=== PATIENT | male | born 1935 | race Caucasian/White ===

== ENCOUNTER 2018-12-19 14:09 | Inpatient (IN) ==
--- NOTE | 2018-12-19 14:44 | EKG Report ---
Test Performed on : 12/19/2018 2:20:25 PM Test Reason : pre-op Blood Pressure : / mmHG Vent. Rate : 091 BPM Atrial Rate : 091 BPM P-R Int : 106 ms QRS Dur : 092 ms QT Int : 396 ms P-R-T Axes : 073 -10 094 degrees QTc Int : 487 ms Sinus rhythm. with short RI with premature supraventricular complexes. Anteroseptal infarct (cited on or before 28-OCT-2017) ST & T wave abnormality, consider inferolateral ischemia Abnormal ECG When compared with ECG of 28-OCT-2017 08:49, Sinus rhythm. has replaced Atrial fibrillation. ST now depressed in Anterolateral leads T wave inversion now evident in Inferior leads T wave inversion now evident in Anterolateral leads Unconfirmed Result
--- NOTE | 2018-12-19 14:55 | Diag Imaging Result Doc PS360 ---
EXAM: CT HEAD W/O CONTRAST 12/19/2018 HISTORY: fell TECHNIQUE: This exam was performed using automated exposure control, adjustment of mA or kV according to patient size, and/or use of iterative reconstruction technique. COMMENT: There is moderate generalized cerebral atrophy. There is no evidence of mass effect, bleed, or abnormal extra-axial fluid collection. There are some calcifications in the basal ganglia. The calvarium appears to be intact. The right maxillary sinus is opacified with some calcification and thickening of the wall consistent with chronic sinusitis, possibly due to fungal disease. IMPRESSION: No evidence of acute intracranial disease. Chronic right maxillary sinusitis. Electronically signed by Rashawn Beltran 12/19/2018 2:53 PM
--- NOTE | 2018-12-19 15:09 | Diag Imaging Result Doc PS360 ---
EXAM: XRAY PELVIS W/HIP 2-3VW LT 12/19/2018 HISTORY: pre-op TECHNIQUE: AP pelvis and left hip three views COMMENT: There is a femoral neck fracture on the left. This was not present on the previous study of 10/28/2017. There is a bipolar hip prosthesis which has been placed since the previous study. Considerable heterotopic bone formation is present around the proximal right femur. There is generalized osteopenia. There are surgical clips in the pelvis inferiorly on both sides. IMPRESSION: Left femoral neck fracture. Electronically signed by Rashawn Beltran 12/19/2018 3:07 PM
--- NOTE | 2018-12-19 15:11 | Diag Imaging Result Doc PS360 ---
EXAM: CHEST-PORTABLE 12/19/2018 HISTORY: pre-op TECHNIQUE: AP upright portable at 1458 COMMENT: There is irregular opacity in the right upper lobe inferiorly which was also present on 10/28/2017. The heart size and pulmonary vascularity are within normal limits. Overall the appearance of the chest is stable in comparison to the previous study. IMPRESSION: Stable chest. Electronically signed by Rashawn Beltran 12/19/2018 3:09 PM
--- NOTE | 2018-12-19 15:11 | Diag Imaging Result Doc PS360 ---
EXAM: LUMBAR SPINE 12/19/2018 HISTORY: fell TECHNIQUE: Lumbosacral spine with obliques six views COMMENT: There is generalized osteopenia/osteoporosis. There has been posterior fusion at the L2-3 and L3-4 levels. There are no previous studies. There is no definite evidence of acute fracture or subluxation. There is atherosclerotic calcification in the aorta. There is a fairly large amount of stool in the ascending and transverse colon. IMPRESSION: Osteoporosis. Postsurgical changes. Electronically signed by Rashawn Beltran 12/19/2018 3:08 PM
--- NOTE | 2018-12-19 15:13 | Diag Imaging Result Doc PS360 ---
EXAM: KNEE 1-2 VIEWS-LEFT 12/19/2018 HISTORY: fell TECHNIQUE: AP and lateral two views COMMENT: There is extensive atherosclerotic calcification in the superficial femoral popliteal and tibioperoneal vessels. There is no evidence of fracture or dislocation. There is patchy osteoporosis. IMPRESSION: No evidence of acute bony disease. Electronically signed by Rashawn Beltran 12/19/2018 3:10 PM
[2018-12-19 15:38] LABS: URINE SOURCE CLEAN CATCH
[2018-12-19 15:44] LABS: BASO# 0.01 X1000 (0.0-0.2); BASO% 0.1 % (0.0-0.8); EOS# 0.02 X1000 (0.0-0.7); EOS% 0.1 % (0.0-10.0); HEMATOCRIT 34.8 % (42.0-52.0); HEMOGLOBIN 11.6 g/dL (14.0-18.0); IMM GRAN# 0.06 X1000 (0.0-0.04); IMM GRAN% 0.4 % (0.0-0.5); LYMPH# 0.81 X1000 (1.2-3.4); LYMPH% 5.6 % (20.5-51.1); MCH 30.9 PG (27-31); MCHC 33.3 g/dL (33-37); MCV 92.8 FL (81-99); MONO# 0.96 X1000 (0.11-0.59); MONO% 6.7 % (1.7-9.3); NEUT# 12.56 X1000 (1.4-6.5); NEUT% 87.1 % (42.2-75.2); PLT 158 X1000 (130-400); RBC 3.75 XMIL (4.7-6.1); RDW 12.7 % (11.5-14.5); WBC 14.42 X1000 (4.8-10.8)
[2018-12-19 15:48] LABS: BILIRUBIN URINE NEGATIVE (NEGATIVE); BLOOD URINE NEGATIVE (NEGATIVE); COLOR YELLOW; GLUCOSE URINE NEGATIVE (NEGATIVE); KETONE URINE TRACE mg/dL (NEGATIVE); LEUKOCYTES URINE NEGATIVE (NEGATIVE); NITRITE URINE NEGATIVE (NEGATIVE); PH URINE 5.5; PROTEIN URINE 30 mg/dL (NEGATIVE); SP GRAVITY URINE 1.019; TURBIDITY URINE CLEAR (CLEAR); UR EPITHELIAL CELLS <10 /HPF (<10); URINE BACTERIA NEGATIVE /HPF; URINE RBC <10 /HPF (<10); URINE WBC <10 /HPF (<10); UROBILINOGEN URINE NORMAL (NORMAL)
[2018-12-19] MEDS ORDERED: ZOFRAN IV PRN (15:50)
[2018-12-19] MEDS ORDERED: TYLENOL PO PRN (15:50)
[2018-12-19 15:53] LABS: INR 1.07; PROTIME 14.7 Seconds (11.0-16.0)
--- NOTE | 2018-12-19 15:53 | PROVIDER DOCUMENTATION ---
This chart was entered by Amy Holder Scribe, acting as scribe for Pete Rojo MD. HPI-Musculoskeletal Pain/Inj - GENERAL Stated Complaint: FALL Time Seen by Provider: 12/19/18 14:17 Source: patient, EMS - HX OF PRESENT ILLNESS-MUSKULOSKELTAL Nature of Presenting Problem: Patient is a 83 year old male who presents to the ED via EMS for fall. Patient states pain to left thigh. EMS states patient stated he has had left thigh pain for 2 days ago after having a colonoscopy. Patient states when he fell he landed on back and buttock. Patient denies head injury or LOC. EMS states history of Parkinson's. Quality of Pain: reports: aching Severity in ED: mild Onset/Duration: this afternoon (1145) Timing: still present Modifying Factors: improves with: nothing Any recent injury?: Yes (fall) Locality of Occurance: Home Similar Symptoms Previously?: No Recently seen or treated by another doctor?: No - FALL INJURY Location of Pain/Injury: reports: back, other (buttocks) Pain Radiation: reports: no radiation Reason for Fall: reports: unknown Symptoms prior to fall:: reports: none Loss of Consciousness: no loss of consciousness - LOWER EXTREMITY PAIN/INJURY Lower Extremities Pain: thigh: left Context / Method of Injury: reports: unknown Associated Symptoms: reports: denies symptoms Review of Systems - Adult - REVIEW OF SYSTEMS - ADULT Constitutional: reports: no symptoms reported Eyes: reports: no symptoms reported Ears, Nose, Mouth & Throat: reports: no symptoms reported Cardiovascular: reports: no symptoms reported Respiratory: reports: no symptoms reported Gastrointestinal: reports: no symptoms reported Genitourinary: reports: no symptoms reported Musculoskeletal: reports: back pain, other (buttocks and left thigh pain). denies: joint swelling, muscle aches, neck pain Integumentary: reports: no symptoms reported Neurological: reports: no symptoms reported Psychiatric: reports: no symptoms reported Endocrine: reports: no symptoms reported Hematologic/Lymphatic: reports: no symptoms reported Allergic/Immunologic: reports: no symptoms reported All Other Systems: Reviewed and Negative Past History - Adult - PAST MEDICAL HISTORY-ADULT Review of Records: reports: Nursing Assessment Review, Medications Reviewed, Social history reviewed & non-contributory. Major Childhood Illnesses: reports: denies history Cardiovascular: reports: CAD, HTN, hyperlipidemia Respiratory: reports: denies history Gastrointestinal: reports: GERD Obstetrical/Gynecological: reports: denies history Genitourinary: reports: denies history Musculoskeletal: reports: arthritis (gout) Neurological: reports: Parkinson's Endocrine/Immune: reports: denies history Other Conditions: reports: denies history - PRIOR SURGERIES/PROCEDURES Surgical/Procedure History: reports: cardiac stent (x2), back/neck - IMMUNIZATION STATUS Childhood Immunizations: See Nurse Assessment Flu Vaccine: See Nurse Assessment - FAMILY HISTORY Family History: reviewed, not pertinent - SOCIAL HISTORY Smoking: denies Substance Use: denies Physical Exam-Injury Related - Physical Exam-Injury Related Initial Vital Signs Reviewed: Yes General Appearance: alert, no apparent distress, thin Eyes: PERRL/EOMI Head, Ears, Nose, Mouth & Throat: moist mucous membranes Respiratory: chest non-tender, lungs clear, normal breath sounds Cardiovascular: normal peripheral pulses, regular rate, rhythm Back Exam: normal inspection, no vertebral tenderness Extremity: non-tender, other (limited ROM to left leg due to pain to mid distal thigh.) Integumentary: normal color, warm/dry Neurologic: grossly normal Psych/Mental Status: normal mood/affect, oriented x 3 Progress - PLAN OF CARE/RESULTS Progress/Plan/Lab Results: Vital Signs - 8 hr 12/19/18 14:20 Temperature 98.5 F Pulse Rate 92 H Respiratory Rate 22 Blood Pressure 167/82 O2 Sat by Pulse Oximetry 95 Laboratory Results - last 24 hr 12/19/18 12/19/18 15:08 15:20 WBC 14.42 H RBC 3.75 L Hgb 11.6 L Hct 34.8 L MCV 92.8 MCH 30.9 MCHC 33.3 RDW Std Deviation 12.7 Plt Count 158 MPV 11.0 H Immature Gran % (Auto) 0.4 Neut % (Auto) 87.1 H Lymph % (Auto) 5.6 L Nobles % (Auto) 6.7 Eos % (Auto) 0.1 Baso % (Auto) 0.1 Immature Gran # (Auto) 0.06 H Neut # (Auto) 12.56 H Lymph # (Auto) 0.81 L Nobles # (Auto) 0.96 H Eos # (Auto) 0.02 Baso # (Auto) 0.01 Urine Source CLEAN CATCH Urine Color YELLOW Urine Turbidity CLEAR Urine pH 5.5 Ur Specific [place] 1.019 Urine Protein 30 A Ur Glucose (Stick) NEGATIVE Ur Ketones (Stick) TRACE A Urine Blood NEGATIVE Urine Nitrite NEGATIVE Urine Bilirubin NEGATIVE Urobilinogen Dipstick NORMAL Urine Leukocytes NEGATIVE Urine WBC (Auto) <10 Urine RBC (Auto) <10 U Epithel Cells (Auto) <10 Urine Bacteria (Auto) NEGATIVE Orders Category Date Time Status Admit - [facility] Routine AdmDCTranf 12/19/18 15:50 Active Activity - Strict Bedrest ORDERED Care 12/19/18 15:50 Active Apply Mechanical Device [QM] ORDERED Care 12/19/18 15:50 Active Intake and Output-Strict ORDERED Care 12/19/18 15:50 Active Nursing- MD Consult Request ROUTINE Care 12/19/18 15:50 Active Nursing- Obtain EKG once Care 12/19/18 14:17 Completed Vital Signs Order Q 4-HR ASSESS Care 12/19/18 15:50 Active Z-Document. for Tele Applied ORDERED Care 12/19/18 15:50 Active Case Management Consult Routine Cons 12/19/18 15:50 Active Physician/Provider Consults Routine Cons 12/19/18 15:50 Ordered NPO Diet 12/19/18 15:50 Active CHEST-PORTABLE [RAD] Stat Exams 12/19/18 14:[address] HEAD W/O CONTRAST [CT] Stat Exams 12/19/18 14:17 Completed KNEE 1-2 VIEWS-LEFT [RAD] Urgent Exams 12/19/18 14:17 Completed LUMBAR SPINE [RAD] Stat Exams 12/19/18 14:17 Completed XRAY PELVIS W/HIP 2-3VW LT [RAD] Stat Exams 12/19/18 14:17 Completed CBC WITH DIFF [HEME] DAILY Lab 12/20/18 06:00 Ordered CBC WITH DIFF [HEME] DAILY Lab 12/21/18 06:00 Ordered CBC WITH DIFF [HEME] DAILY Lab 12/22/18 06:00 Ordered CBC WITH DIFF [HEME] Stat Lab 12/19/18 15:08 Completed COMPREHENSIVE METABOLIC PANEL [CHEM] DAILY Lab 12/20/18 06:00 Ordered COMPREHENSIVE METABOLIC PANEL [CHEM] DAILY Lab 12/21/18 06:00 Ordered COMPREHENSIVE METABOLIC PANEL [CHEM] DAILY Lab 12/22/18 06:00 Ordered COMPREHENSIVE METABOLIC PANEL [CHEM] Stat Lab 12/19/18 15:08 Received MAGNESIUM [CHEM] Routine Lab 12/20/18 06:00 Ordered PROTIME WITH INR [COAG] Stat Lab 12/19/18 15:08 Received PTT [COAG] Stat Lab 12/19/18 15:08 Received TSH Routine Lab 12/20/18 06:00 Ordered URINALYSIS W/POSS RFLX CULT [URINALYSIS] Stat Lab 12/19/18 15:20 Completed 0.9% Sodium Chloride Inj [Ns] 1,000 ml Med 12/19/18 15:50 Ordered IV 75 mls/hr Acetaminophen [Tylenol] Med 12/19/18 15:50 Ordered 650 mg PO Q6H PRN PRN Ondansetron [Zofran] Med 12/19/18 15:50 Ordered 4 mg IV Q4H PRN PRN Pantoprazole [Protonix] Med 12/19/18 15:50 Ordered 40 mg IV Q24H Sodium Chloride 0.9% Med 12/19/18 15:50 Ordered 10 ml INJ DIRECTED Oxygen Device Routine Oth 12/19/18 15:50 Active Telemetry [OM.EQ] Routine Oth 12/19/18 15:50 Active EKG [EKG] Stat Ther 12/19/18 14:17 Draft Transfer/Admit Order [TRANSFER] Routine Transfer 12/19/18 15:18 Completed Result Diagrams: 12/19/18 15:08 - EKG 1 Time of EKG reading by physician:: 14:20 EKG Read and Signed by:: Pete Rojo EKG Interpretation (*Must complete 3 of following elements*): Abnormal (ST & T wave abnormality, consider inferolateral ischemia) Rate: 91 Rhythm: sinus rhythm with short MT with premature supraventricular complexes MT Interval: normal Comments: anteroseptal infarct, age undetermined - XRAY 1 XRAY Study: Chest Impression: See EMR Report (EXAM: CHEST-PORTABLE 12/19/2018 HISTORY: pre-op TECHNIQUE: AP upright portable at 1458 COMMENT: There is irregular opacity in the right upper lobe inferiorly which was also present on 10/28/2017. The heart size and pulmonary vascularity are within normal limits. Overall the appearance of the chest is stable in comparison to the previous study. IMPRESSION: Stable chest. Electronically signed by Rashawn Beltran 12/19/2018 3:09 PM 12/06 5220 Interpreting Physician: Rashawn Beltran MD Dictated Date/Time: 12/19/18 1508 cc: Pete Rojo MD; Geremias Newell) 2 XRAY: Left XRAY Study: Pelvis, Hip Impression: See EMR Report ( EXAM: XRAY PELVIS W/HIP 2-3VW LT 12/19/2018 HISTORY : pre-op TECHNIQUE: AP pelvis and left hip three views COMMENT: There is a femoral neck fracture on the left. This was not present on the previous study of 10/28/2017. There is a bipolar hip prosthesis which has been placed since the previous study. Considerable heterotopic bone formation is present around the proximal right femur. There is generalized osteopenia. There are surgical clips in the pelvis inferiorly on both sides. IMPRESSION: Left femoral neck fracture. Electronically signed by Rashawn Beltran 12/19/2018 3:07 PM 1507 Interpreting Physician: Rashawn Beltran MD Dictated Date/Time: 12/19/18 1506 cc: Pete Rojo MD; Geremias Newell) 3 XRAY: Left XRAY Study: Knee Impression: See EMR Report (EXAM: KNEE 1-2 VIEWS-LEFT 12/19/2018 HISTORY: fell TECHNIQUE: AP and lateral two views COMMENT: There is extensive atherosclerotic calcification in the superficial femoral popliteal and tibioperoneal vessels. There is no evidence of fracture or dislocation. There is patchy osteoporosis. IMPRESSION: No evidence of acute bony disease. Electronically signed by Rashawn Beltran 12/19/2018 3:10 PM 12/19/18 1510 Interpreting Physician: Rashawn Beltran MD Dictated Date/Time: 1510 cc: Pete Rojo MD; Geremias Newell) 4 XRAY Study: Lumbar Spine Impression: See EMR Report ( EXAM: LUMBAR SPINE 12/19/2018 HISTORY: fell TECHNIQUE: Lumbosacral spine with obliques six views COMMENT: There is generalized osteopenia/osteoporosis. There has been posterior fusion at the L2- 3 and L3-4 levels. There are no previous studies. There is no definite evidence of acute fracture or subluxation. There is atherosclerotic calcification in the aorta. There is a fairly large amount of stool in the ascending and transverse colon. IMPRESSION: Osteoporosis. Postsurgical changes. Electronically signed by Rashawn Beltran 12/19/2018 3:08 PM 12/19/18 1508 Interpreting Physician: Rashawn Beltran MD Dictated Date/Time: 12/19/18 1507 cc: Pete Rojo MD; Geremias Newell) - CT/MRI 1 CT Study: Head Impression: See EMR Report (EXAM: CT HEAD W/O CONTRAST 12/19/2018 HISTORY: fell TECHNIQUE: This exam was performed using automated exposure control, adjustment of mA or kV according to patient size, and/or use of iterative reconstruction technique. COMMENT: There is moderate generalized cerebral atrophy. There is no evidence of mass effect, bleed, or abnormal extra-axial fluid collection. There are some calcifications in the basal ganglia. The calvarium appears to be intact. The right maxillary sinus is opacified with some calcification and thickening of the wall consistent with chronic sinusitis , possibly due to fungal disease. IMPRESSION: No evidence of acute intracranial disease. Chronic right maxillary sinusitis. Electronically signed by Rashawn Beltran 12/19/2018 2:53 PM 12/19/18 1453 Interpreting Physician: Rashawn Beltran MD Dictated Date/Time: 12/19/18 1451 cc: Pete Rojo MD; Geremias Newell) - CONSULTS/PCP/HOSPITALIST Notification #1 *Consult/PCP/Hospitalist*: SHELBIE Riggs for Hospitalist Time Discussed: 15:15 (Dr. Rodriguez accepted admit ) Reason/Comments: Dr. Rojo consulted with Keely about patient. Consult Disposition: Admit Departure - Departure Date of Disposition Decision: 12/19/18 Time of Disposition Decision: 15:15 DIAGNOSIS: Left displaced femoral neck fracture Disposition: ADMITTED INPATIENT 09 Certified Medical Emergency: Emergent Condition: Fair - Critical Care Note This patient required my direct & personal management of CC.: No Attestation - Physician/ SYLVESTER Attestation Patient care was provided by Advanced Practice Provider:: No The physician spent face to face time with patient:: Yes Advanced Practice Provider documentation review:: Supervising physician onsite and consulted in the evaluation and care of this patient. The physician did have a face to face encounter with the patient. This chart was documented by the coleman rehman, (Amy Holder Scribe) and accurately reflects the services I performed and decisions made by me, Pete Rojo MD, as attested by the provider's signature.
[2018-12-19 16:13] LABS: AGAP 12; ALB/GLOB RATIO 1.7; ALBUMIN 3.9 g/dL (3.5-5.0); ALKALINE PHOSPHATASE 186 U/L (32-122); BUN 27 mg/dL (8-22); CALCIUM 8.5 mg/dL (8.8-10.2); CHLORIDE 101 mmol/L (98-107); COSMO 279; CREATININE 0.8 mg/dL (0.7-1.2); ESTIMATED GFR > 60; GLUCOSE 105 mg/dL (70-104); GOT 36 U/L (10-34); GPT 6 U/L (10-44); POTASSIUM 3.7 mmol/L (3.5-5.1); SODIUM 137 mmol/L (136-145); TCO2 24 mmol/L (25-35); TOTAL BILIRUBIN 0.86 mg/dL (0.20-1.00); TOTAL PROTEIN 6.2 g/dL (6.3-8.3)
[2018-12-19] MEDS: PROTONIX IV SCH (16:22)
[2018-12-19] MEDS: NS 1,000 ML IV SCH (16:22)
[2018-12-19] MEDS: MORPHINE IV PRN ×2 (18:00→23:58)
--- NOTE | 2018-12-19 23:14 | HISTORY AND PHYSICAL ---
PRIMARY CARE PHYSICIAN: Dr. Newell. CHIEF COMPLAINT: Left hip pain after sustaining a fall. HISTORY OF PRESENT ILLNESS: Mr. Sosa is an 83-year-old male with a past medical history of Parkinson's, history of IN, coronary artery disease and hypertension , who sustained a fall while using the toilet with his walker at home today. He does have Parkinson's as well. He lives at home with his . His was not home with the time and he sat there for about 2 hours before he was found. He denies hitting his head or any loss of consciousness. Evaluation in the ER did reveal a left femoral neck fracture. All other x-rays were normal. Chest x-ray was normal. He denies any chest pain or shortness of breath. He denies abdominal pain, constipation, diarrhea, hematochezia or melena. He will be admitted for further evaluation and treatment regarding left femoral neck fracture. Consultation with Orthopedics. PAST MEDICAL HISTORY: 1. Parkinson's. 2. Hypertension. 3. History IN. 4. History of coronary artery disease. 5. History of gout. 6. History of hyperlipidemia. PAST SURGICAL HISTORY: The patient's did not currently have his surgical history list on hand and she said he has had several, "I know he's had a back surgery. I know he's had a right hip fracture previously," so once we get that list we will finalize his surgical history. SOCIAL HISTORY: Lives at home with his . Denies any alcohol, tobacco, or drug use. FAMILY HISTORY: Positive for cardiac family history. REVIEW OF SYSTEMS: Fourteen point review of systems completely negative except for those mentioned in the HPI. HOME MEDICATIONS: Again, waiting to be reconciled, getting that list from his . ALLERGIES: No known drug allergies. PHYSICAL EXAMINATION: VITAL SIGNS: Temperature 98.5 degrees, heart rate 92, respiratory rate 22, blood pressure 167/82, O2 saturation 95% on room air. GENERAL: This is a chronically ill-appearing 83-year-old male. He is in no acute distress. He answers questions appropriately. NEUROLOGIC: He is alert and oriented. He does have an obvious Parkinson's tremor. Strength is equal bilaterally. HEENT: His head is atraumatic and normocephalic. His pupils are equal, round, reactive to light. His oral mucosa is moist. NECK: His trachea is midline. There is no JVD. CHEST: His lung sounds are clear bilaterally. CARDIOVASCULAR: His rate and rhythm are regular. S1 and S2 noted. GASTROINTESTINAL: His abdomen is soft and nontender. Bowel sounds are positive. EXTREMITIES: His left lower extremity is shortened and externally rotated. Pedal pulses are 2+. SKIN: Warm, dry, intact. LABS: WBC 14.4, hemoglobin 11.6, hematocrit 34.8. PT 14.7, INR 1.07, PTT 31.0. Urine, trace ketones. IMAGING: Chest x-ray reveals a stable chest. Head CT reveals no evidence of acute intracranial pathology. Chronic right maxillary sinusitis. Left hip x-ray reveals left femoral neck fracture. Left knee x-ray reveals no evidence of acute bony disease and lumbar spine x- ray reveals osteoporosis, postsurgical changes. ASSESSMENT AND PLAN: 1. Left femoral neck fracture. We will provide pain medication. We will hold anticoagulants, provide some IV fluids and consult with Orthopedics. Follow recommendations per Orthopedics regarding left femoral neck fracture. He is placed NPO. Check CK as well. 2. History of Parkinson's. We will continue his current medications. 3. History of hypertension. We can continue his home medications. 4. History of myocardial infarction and coronary artery disease. We can continue his home medications. He is not complaining of any chest pain. EKG does not indicate any acute ischemia. 5. History of gout. We can resume home medications. 6. History of hyperlipidemia. We can resume home medications. 7. Gastrointestinal prophylaxis, Protonix. 8. Deep venous thrombosis prophylaxis. Currently holding for now for possible surgery. We will resume postop per Orthopedics. Dictated by SHELBIE Mancuso for Darian Wilson MD Addendum: Patient is seen and examined by myself. Agree with SHELBIE note. It reflects my assessment and plan. Patient is being admitted to hospital for left femur fracture. Will consult Orthopedics and will place him on NPO for anticipation for possible surgery in the morning. Will continue rest of home medications. Will monitor patient patient closely. cc: MD Selwyn Herrera MD [facility]
[2018-12-20] MEDS: MORPHINE IV PRN ×2 (03:30→05:55)
--- NOTE | 2018-12-20 03:40 | CONSULTATION ---
DATE OF CONSULTATION: 12/19/2018 HISTORY OF PRESENT ILLNESS: The patient is an 83-year-old male who presented to the emergency department today for a fall. He reports he fell about lunch time today while going to the bathroom. He had pain in his left thigh region. The patient denies loss of consciousness or head injury. He reports he has Parkinson disease. He states he ate a bowl of cereal at 8:00 AM. He has not had anything to eat since. He reports taking an aspirin this morning. PAST MEDICAL HISTORY: 1. Coronary artery disease. 2. Hypertension. 3. Hyperlipidemia. 4. Gastroesophageal reflux disease. 5. Gout. 6. Parkinson's disease. 7. Myocardial infarction. 8. Prostate cancer. PAST SURGICAL HISTORY: 1. Cardiac stents x2. 2. Back surgery x3. 3. Left shoulder surgery. 4. Prostatectomy. 5. Right hip replacement PAST SOCIAL HISTORY: He denies smoking, drinking or drug use. ALLERGIES: The patient has no known drug allergies. REVIEW OF SYSTEMS: A 14-point review of systems was performed and pertinent positives were listed in the HPI. PHYSICAL EXAMINATION: General: The patient is alert and oriented. He appears to be in some discomfort. He is thin. HEENT: Head is atraumatic and normocephalic. Eyes are equal, round and reactive. There is moist mucous membranes. Neck: Supple. Respiratory: There is equal chest expansion, rise and fall. Cardiovascular: Normal peripheral pulses. There is regular rate and rhythm. Extremities: The left lower extremity is slightly shortened and externally rotated. There is good pedal pulses. There is negative Homans sign. There is mild anterior joint line tenderness to the left hip. There is good capillary refill in the toes. ASSESSMENT: Left femoral neck fracture. PLAN: We will plan a left bipolar hemiarthroplasty in the morning. The patient will be allowed to eat tonight. He will be held NPO after midnight. The risks and benefits of surgery was talked about with the patient and family. They include infection, damage to a tendon, nerve or blood vessel, loss of life, and anesthesia complications. The patient is aware of these risks. The patient agrees to proceed with a bipolar hip replacement at this time. Thank you again for the consultation. Dictated by SHELBIE Camejo for Gera Tello MD cc: SHELBIE Camejo MD [facility]
[2018-12-20] MEDS: NS 1,000 ML IV SCH (05:55)
[2018-12-20 06:14] LABS: HEMATOCRIT 38.5 % (42.0-52.0); HEMOGLOBIN 12.8 g/dL (14.0-18.0); IMM GRAN# 0.05 X1000 (0.0-0.04); IMM GRAN% 0.4 % (0.0-0.5); LYMPH# 0.91 X1000 (1.2-3.4); LYMPH% 6.7 % (20.5-51.1); MCH 31.1 PG (27-31); MCHC 33.2 g/dL (33-37); MCV 93.7 FL (81-99); MONO# 1.65 X1000 (0.11-0.59); MONO% 12.1 % (1.7-9.3); MPV 11.8 FL (7.4-10.4); NEUT# 11.05 X1000 (1.4-6.5); NEUT% 80.8 % (42.2-75.2); PLT 197 X1000 (130-400); RBC 4.11 XMIL (4.7-6.1); RDW 12.8 % (11.5-14.5); WBC 13.66 X1000 (4.8-10.8)
[2018-12-20 06:39] LABS: AGAP 14; ALB/GLOB RATIO 1.5; ALBUMIN 3.9 g/dL (3.5-5.0); ALKALINE PHOSPHATASE 198 U/L (32-122); BUN 20 mg/dL (8-22); CALCIUM 8.7 mg/dL (8.8-10.2); CHLORIDE 98 mmol/L (98-107); COSMO 275; CREATININE 0.7 mg/dL (0.7-1.2); ESTIMATED GFR > 60; GLUCOSE 98 mg/dL (70-104); GOT 43 U/L (10-34); GPT 25 U/L (10-44); MAGNESIUM 1.8 mg/dL (1.5-2.7); POTASSIUM 3.6 mmol/L (3.5-5.1); SODIUM 136 mmol/L (136-145); TCO2 24 mmol/L (25-35); TOTAL BILIRUBIN 1.57 mg/dL (0.20-1.00); TOTAL PROTEIN 6.5 g/dL (6.3-8.3)
[2018-12-20] MEDS ORDERED: KEFZOL 1 GM/D5W 1 GM/50 ML IVPB IV ONE (07:07)
[2018-12-20] MEDS ORDERED: KEFZOL 1 GM/D5W 1 GM/50 ML IVPB ONE (07:10)
[2018-12-20] MEDS ORDERED: TORADOL ONE (07:10)
[2018-12-20] MEDS ORDERED: DURAMORPH ONE (07:10)
[2018-12-20] MEDS ORDERED: SODIUM CHLORIDE 0.9% ONE (07:11)
[2018-12-20] MEDS ORDERED: CYKLOKAPRON 1,000 MG/NS 0 MG/0 ML IVPB ONE (07:11)
[2018-12-20] MEDS ORDERED: SENSORCAINE-MPF 0.5%/EPI 1:200,000 ONE (07:12)
[2018-12-20] MEDS ORDERED: NEOSPORIN G.U. IRRIGANT ONE (07:12)
[2018-12-20] MEDS ORDERED: EXPAREL 1.3% ONE (07:12)
[2018-12-20] MEDS ORDERED: DIPRIVAN 1% ONE (07:58)
[2018-12-20] MEDS ORDERED: XYLOCAINE-MPF 2% ONE (08:15)
[2018-12-20] MEDS ORDERED: QUELICIN (DOSE) ONE (08:18)
[2018-12-20] MEDS ORDERED: ZOFRAN ONE (08:18)
[2018-12-20] MEDS ORDERED: OFIRMEV 1000 MG/ISOTONIC SOLN 1,000 MG/100 ML BOTTLE ONE (08:23)
[2018-12-20] MEDS ORDERED: EPHEDRINE ONE (08:31)
[2018-12-20] MEDS ORDERED: MORPHINE ONE (08:38)
--- NOTE | 2018-12-20 10:05 | Diag Imaging Result Doc PS360 ---
EXAM: HIP 1 VIEW LEFT 12/20/2018 HISTORY: s/p L bipolar hip sx TECHNIQUE: Left hip AP COMMENT: There is a bipolar hip prosthesis. There is no evidence of acute fracture or other bony abnormality. IMPRESSION: Postsurgical changes. Electronically signed by Rashawn Beltran 12/20/2018 10:03 AM
[2018-12-20] MEDS ORDERED: HALDOL IV PRN (10:10)
[2018-12-20] MEDS ORDERED: MORPHINE IV PRN (10:10)
[2018-12-20] MEDS ORDERED: ZOFRAN IV PRN (10:10)
[2018-12-20] MEDS ORDERED: MILK OF MAGNESIA PO PRN (10:10)
[2018-12-20 11:45] LABS: URINE SOURCE CATH
[2018-12-20 12:27] LABS: BILIRUBIN URINE NEGATIVE (NEGATIVE); BLOOD URINE NEGATIVE (NEGATIVE); COLOR YELLOW; GLUCOSE URINE NEGATIVE (NEGATIVE); KETONE URINE TRACE mg/dL (NEGATIVE); LEUKOCYTES URINE NEGATIVE (NEGATIVE); NITRITE URINE NEGATIVE (NEGATIVE); PH URINE 6.5; PROTEIN URINE 70 mg/dL (NEGATIVE); SP GRAVITY URINE 1.013; TURBIDITY URINE CLEAR (CLEAR); UR EPITHELIAL CELLS <10 /HPF (<10); URINE BACTERIA NEGATIVE /HPF; URINE RBC <10 /HPF (<10); URINE WBC <10 /HPF (<10); UROBILINOGEN URINE NORMAL (NORMAL)
--- NOTE | 2018-12-20 14:12 | PROGRESS NOTE ---
DATE: 12/20/2018 SUBJECTIVE: Patient is hard of hearing, but reports pain is under control. He underwent surgery this morning. OBJECTIVE: Vital Signs: Temperature 97.8, heart rate 86 respiratory 14, blood pressure 141/85, O2 saturation 100% on 2 L nasal cannula. General Examination: This is an 83-year-old male, lying in bed in no acute distress. Cardiovascular exam: S1, S2 heard. No murmurs, gallops, or rubs. Regular rate and rhythm. Respiratory exam: Clear bilaterally to auscultation. No work of breathing or using accessory muscles. Abdomen: Soft, nontender to palpation. Bowel sounds present. No organomegaly. Extremities: Left hip covered by dressing. patient able to wiggle both toes and both lower extremities. Neurological examination: Patient is hard of hearing, but oriented in place and person. Follows commands. LABORATORY DATA: White cell count 13.66, hemoglobin 12.8, hematocrit 38.5, platelets 197 with normal BMP, normal magnesium. ASSESSMENT AND PLAN: 1. Left femoral neck fracture, status post left bipolar hemiarthroplasty. Orthopedics following this patient. We will follow recommendations. 2. Parkinson disease. We will continue providing home medications for him. 3. Hypertension. Blood pressure is under control. We will continue with the same management. 4. Coronary artery disease with history of myocardial infarction. The patient is not complaining of any chest pain. Blood pressure is under control. We will continue with the same medications. 5. Hyperlipidemia. Will continue with home medication. 6. Gout. Stable. 7. Deep vein thrombosis prophylaxis. Will be addressed by Orthopedics today. cc: Darian Wilson MD
--- NOTE | 2018-12-20 15:17 | OPERATIVE NOTE ---
PROCEDURE DATE: 12/19/2018 PREOPERATIVE DIAGNOSIS: Left displaced femoral neck fracture. POSTOPERATIVE DIAGNOSIS: Left displaced femoral neck fracture. PROCEDURES: Hemiarthroplasty, left hip with the DePuy Actis size 8 press-fit stem with a 28+1.5 femoral head and a 28 x 53 bipolar head. SURGEON: Dr. Gera Tello. ANESTHESIA: General. IV FLUIDS: 1750 mL lactated Ringer's. ESTIMATED BLOOD LOSS: 150 mL. COMPLICATIONS: None. INDICATION: The patient is an 83-year-old male who is 1 day status post fall sustaining left displaced femoral neck fracture. He was admitted to the hospital and Orthopedic consultation requested. Recommendation to proceed with hemiarthroplasty was offered. Risks, benefits of surgery were explained, including the risks of anesthesia, , bleeding, infection, failure to relieve pain, postoperative stiffness, nerve injury, blood clots and other imponderables. All questions were answered. The patient's family wished to proceed with surgery. DETAILS OF OPERATION: The patient was taken to the operating room and placed supine on the operating table. Once adequate anesthesia was obtained, the patient was placed in a right lateral decubitus position on a wood bag with axillary roll. The left hip was subsequently prepped and draped in the usual sterile fashion. A standard lateral incision made along the hip and a posterior approach was performed. The gluteus cece was incised longitudinally. Charnley retractors then placed. The piriformis tendon was then identified and a stay suture was placed. The piriformis tendon along with short external rotators were then elevated. After this had been performed, a T-shaped capsulotomy was then performed. The #1 Vicryl was placed at the corners of the capsule. Approximately 1 fingerbreadth proximal to the lesser trochanter, femoral neck was resected. After this had been performed, the head was then removed with a corkscrew. Starting box cutting guide was then placed and the intramedullary canal was followed by a starting reamer. Sequential broaching was performed up to size 8. It had a good fit. Trial head and neck length was determined and appropriate. It had good stability. Trial components were then removed. The wound was copiously irrigated with antibiotic pulsatile lavage. A size 8 DePuy Actis press-fit stem was then impacted and had good fit. A 28+ 1.5 femoral head with a 28 x 53 bipolar head was then placed on the stem. The hip was reduced, carried through range of motion. It had good stability. The wound was copiously irrigated once again with antibiotic pulsatile lavage. Number 1 Vicryl was used to repair the arthrotomy followed by #1 Vicryl to repair the piriformis tendon. The wound was copiously irrigated once again and the Charnley retractor was then removed. Number 1 Vicryl was used to repair the gluteus cece in a running fashion. Final irrigation was then performed. The 2-0 Vicryl was then used to repair the subcutaneous tissue, and skin zenon. Adaptic, 4 x 4s ABD pad, and tape applied to the left hip. The patient tolerated the procedure well without complication and was transferred to the recovery room in stable condition. cc: Gera Tello MD
[2018-12-20] MEDS: KEFZOL 1 GM/D5W 1 GM/50 ML IVPB IV SCH ×2 (15:36→23:40)
[2018-12-20] MEDS: PROTONIX IV SCH (15:37)
[2018-12-20] MEDS: TYLENOL PO SCH ×2 (16:27→23:40)
[2018-12-20] MEDS: OXY IR PO PRN ×2 (16:44→22:16)
[2018-12-20] MEDS: PERIDEX MT SCH (22:16)
[2018-12-20] MEDS: COLACE PO SCH (22:16)
[2018-12-21 05:19] LABS: URINE SOURCE CATH
[2018-12-21] MEDS: NS 1,000 ML IV SCH (05:35)
[2018-12-21] MEDS: XARELTO PO SCH (05:35)
[2018-12-21 05:46] LABS: BILIRUBIN URINE NEGATIVE (NEGATIVE); BLOOD URINE SMALL (NEGATIVE); COLOR YELLOW; GLUCOSE URINE NEGATIVE (NEGATIVE); KETONE URINE NEGATIVE (NEGATIVE); LEUKOCYTES URINE TRACE (NEGATIVE); NITRITE URINE NEGATIVE (NEGATIVE); PROTEIN URINE 70 mg/dL (NEGATIVE); SP GRAVITY URINE 1.023; TURBIDITY URINE CLEAR (CLEAR); UROBILINOGEN URINE NORMAL (NORMAL)
[2018-12-21 05:48] LABS: UR EPITHELIAL CELLS <10 /HPF (<10); URINE BACTERIA NEGATIVE /HPF; URINE RBC <10 /HPF (<10); URINE WBC <10 /HPF (<10)
[2018-12-21 05:49] LABS: BASO# 0.02 X1000 (0.0-0.2); BASO% 0.1 % (0.0-0.8); HEMATOCRIT 34.9 % (42.0-52.0); HEMOGLOBIN 11.1 g/dL (14.0-18.0); IMM GRAN# 0.14 X1000 (0.0-0.04); IMM GRAN% 0.4 % (0.0-0.5); LYMPH% 2.2 % (20.5-51.1); MCH 30.7 PG (27-31); MCHC 31.8 g/dL (33-37); MCV 96.4 FL (81-99); MONO# 3.66 X1000 (0.11-0.59); MONO% 10.2 % (1.7-9.3); MPV 11.8 FL (7.4-10.4); NEUT# 31.34 X1000 (1.4-6.5); NEUT% 87.1 % (42.2-75.2); PLT 188 X1000 (130-400); RBC 3.62 XMIL (4.7-6.1); RDW 12.8 % (11.5-14.5); WBC 35.96 X1000 (4.8-10.8)
[2018-12-21 05:59] LABS: AGAP 12; ALB/GLOB RATIO 1.8; ALBUMIN 3.5 g/dL (3.5-5.0); ALKALINE PHOSPHATASE 170 U/L (32-122); BUN 24 mg/dL (8-22); CALCIUM 8.4 mg/dL (8.8-10.2); CHLORIDE 99 mmol/L (98-107); COSMO 276; ESTIMATED GFR > 60; GLUCOSE 106 mg/dL (70-104); GOT 71 U/L (10-34); GPT 32 U/L (10-44); POTASSIUM 3.8 mmol/L (3.5-5.1); SODIUM 136 mmol/L (136-145); TCO2 25 mmol/L (25-35); TOTAL BILIRUBIN 1.22 mg/dL (0.20-1.00); TOTAL PROTEIN 5.4 g/dL (6.3-8.3)
[2018-12-21 06:19] LABS: CK PROFILE 628 U/L (24-204)
[2018-12-21 06:47] LABS: BASO# 0.02 X1000 (0.0-0.2); BASO% 0.1 % (0.0-0.8); HEMATOCRIT 33.7 % (42.0-52.0); HEMOGLOBIN 10.9 g/dL (14.0-18.0); IMM GRAN# 0.16 X1000 (0.0-0.04); IMM GRAN% 0.5 % (0.0-0.5); LYMPH# 0.86 X1000 (1.2-3.4); LYMPH% 2.6 % (20.5-51.1); MCH 30.8 PG (27-31); MCHC 32.3 g/dL (33-37); MCV 95.2 FL (81-99); MONO# 3.42 X1000 (0.11-0.59); MONO% 10.3 % (1.7-9.3); MPV 11.9 FL (7.4-10.4); NEUT# 28.78 X1000 (1.4-6.5); NEUT% 86.5 % (42.2-75.2); PLT 178 X1000 (130-400); RBC 3.54 XMIL (4.7-6.1); RDW 12.8 % (11.5-14.5); WBC 33.24 X1000 (4.8-10.8)
[2018-12-21 06:54] LABS: AGAP 11; ALB/GLOB RATIO 1.2; ALKALINE PHOSPHATASE 165 U/L (32-122); BUN 24 mg/dL (8-22); CALCIUM 8.2 mg/dL (8.8-10.2); CHLORIDE 100 mmol/L (98-107); COSMO 277; ESTIMATED GFR > 60; GLUCOSE 110 mg/dL (70-104); GOT 76 U/L (10-34); GPT 33 U/L (10-44); POTASSIUM 4.6 mmol/L (3.5-5.1); SODIUM 136 mmol/L (136-145); TCO2 25 mmol/L (25-35); TOTAL BILIRUBIN 1.13 mg/dL (0.20-1.00); TOTAL PROTEIN 5.5 g/dL (6.3-8.3)
[2018-12-21] MEDS ORDERED: ROCEPHIN 1 GM in NS 50 ML IV SCH (07:00)
[2018-12-21] MEDS ORDERED: VANCOMYCIN IV PER PHARMACY MISC SCH (07:00)
[2018-12-21 07:09] LABS: INR 1.16; PROTIME 15.7 Seconds (11.0-16.0); PTT 31.3 Seconds (22.3-41.8)
--- NOTE | 2018-12-21 07:15 | Diag Imaging Result Doc PS360 ---
EXAM: CHEST-1 VIEW 12/21/2018 HISTORY: sepsis protocol TECHNIQUE: AP portable at 0221 COMMENT: The inspiration is less optimal than on 12/19/2018. There is increasing interstitial opacity with focal alveolar opacification in the right lower lobe which was not present on the previous study. There continues to be a ill-defined opacity in the lower portion of the right upper lobe. IMPRESSION: Right lower lobe pneumonia plus minus pulmonary edema. Electronically signed by Rashawn Beltran 12/21/2018 7:12 AM
[2018-12-21 07:23] LABS: CK INDEX 7.5 (0.0-2.5); CK-MB 46.92 ng/mL (0.0-5.0)
[2018-12-21 07:37] LABS: BANDS 8 % (0-1); LYMPHS 2 % (21-51); MONO 6 % (1-9); SEGS 84 % (42-75)
[2018-12-21] MEDS: TYLENOL PO SCH ×3 (08:15→16:00)
[2018-12-21] MEDS: FERROUS SULFATE PO SCH (08:15)
[2018-12-21] MEDS: PERIDEX MT SCH ×2 (08:15→21:12)
[2018-12-21 08:30] LABS: BANDS 14 % (0-1); MONO 8 % (1-9); SEGS 78 % (42-75)
[2018-12-21] MEDS: KEFZOL 1 GM/D5W 1 GM/50 ML IVPB IV SCH (09:01)
--- NOTE | 2018-12-21 10:13 | PROGRESS NOTE ---
DATE: 12/21/2018 CLINICAL HISTORY: The patient is an 83-year-old male who is 1 day status post hemiarthroplasty of the left hip. He is currently resting comfortably. OBJECTIVE: On physical exam of the patient's left lower extremity, his dressing is intact. His calf is soft. Compartments were soft. His hemoglobin is 11.1 and hematocrit is 34.9. IMPRESSION: Postoperative day #1, status post hemiarthroplasty of the left hip. PLAN: At this point, we will begin mobilization with physical therapy once okay from a medical standpoint. cc: Gera Tello MD
[2018-12-21] MEDS ORDERED: VANCOMYCIN 1,800 MG in NS 250 ML IV ONE (12:00)
--- NOTE | 2018-12-21 14:47 | PROGRESS NOTE ---
DATE: 12/21/2018 SUBJECTIVE: Patient reports feeling fine. As per nursing staff, he had fever last night, and he was coughing some, although patient denies he had any respiratory symptoms. He had a fever of 102.6. He denies any chest pain. He denies difficulty in breathing. Troponin has been checked because of the fever as a part of the sepsis protocol and it was positive at 0.5 , but as we mentioned before, he denies having any chest pain. OBJECTIVE: Vital Signs: Temperature 98.2 degrees, heart rate 90, respiratory rate 16, blood pressure 126/61, O2 saturation 98% on 3 L nasal cannula. General Examination: This is an 83-year- old male, lying in bed in no acute distress. HEENT: Head is normocephalic, atraumatic. Mucous membranes dry. Cardiovascular: S1, S2 heard. No murmurs, gallops, or rubs. Regular rate and rhythm. Respiratory: Clear bilaterally to auscultation. No work of breathing or using accessory muscles. Abdomen: Soft, nontender to palpation. Bowel sounds present. No organomegaly. Extremities: No clubbing, cyanosis, or edema. Peripheral pulses present in both legs. Left hip covered by dressing. Neurological: Patient is hard of hearing , but oriented in place and person. Follows commands. DIAGNOSTIC STUDIES: White cell count 33.24, hemoglobin 10.9, hematocrit 33.7, platelets 178,000. A normal BMP, creatinine is 1.0. Troponin 0.59. Lactate is 2.5; the lactate was drawn this afternoon at 12:45. ASSESSMENT AND PLAN: 1. Left femoral neck fracture status post left hemiarthroplasty. Orthopedics is following. 2. Parkinson disease. All his medication will be restarted today. 3. Sepsis of unknown source. The patient started having fever with very elevated white cell count from yesterday and the day before and elevated lactate but no clear source of infection. We will start vancomycin and Zosyn. Blood cultures and urine culture have been drawn. We will monitor this patient closely. 4. Coronary artery disease with history of myocardial infarction, although the patient is not complaining of any chest pain. Troponin has been checked because of because of sepsis protocol, and it has been elevated at 0.59. The patient reports not having any chest pain. We will trend them down. We will do an electrocardiogram STAT, and we will monitor this patient closely. 5. Hyperlipidemia. We will continue home medications. 6. Coronary artery disease (CAD), stable. 7. Deep vein thrombosis (DVT) prophylaxis. We will continue with Xarelto 10 mg. DISPOSITION: Depending upon results of blood tests. cc: Darian Wilson MD MTDD
[2018-12-21] MEDS: REQUIP PO SCH (14:57)
[2018-12-21] MEDS: SINEMET 25/100 PO SCH (14:57)
[2018-12-21] MEDS: SODIUM CHLORIDE 0.9% INJ SCH (14:57)
[2018-12-21] MEDS: PROTONIX IV SCH (14:57)
[2018-12-21] MEDS: ZOSYN 3.375 GM in NS 50 ML IV SCH ×2 (15:00→21:11)
--- NOTE | 2018-12-21 17:42 | Diag Imaging Result Doc PS360 ---
EXAM: CT THORAX/ABDOMEN W/WO CON 12/21/2018 HISTORY: sepsis of unknown source TECHNIQUE: This exam was performed using automated exposure control, adjustment of mA or kV according to patient size, and/or use of iterative reconstruction technique. COMMENT: There is apical pleural fibrosis bilaterally. There is patchy alveolar opacity in the right upper lobe and lower lobe. There is also consolidation in the posterior costophrenic sulcus region of the left lower lobe. There are bilateral pleural effusions. There is extensive atherosclerotic calcification in the coronary arteries. There are calcified nodes in both gracie and the subcarina. There is some noncalcified adenopathy in the subcarina. There is severe degenerative changes in the left shoulder. ABDOMEN: There is some inhomogeneity and periportal edema in the liver which may be indicative of cirrhosis. There is a cyst in the left hepatic lobe. The spleen is at the upper limits of normal in size. The aorta is not distended. The mesenteric arteries are patent. The adrenal glands are not enlarged. The pancreas is unremarkable. The kidneys are without evidence of hydronephrosis or mass. There is stool throughout the colon. There is some retained gas and food in the stomach. There is subcutaneous edema consistent with anasarca. The appendix is not clearly identifiable but there is no evidence of appendicitis. There are postsurgical changes in the lumbar spine. IMPRESSION: 1. Right upper and bilateral lower lobe pneumonia (as previously reported on chest radiography.) Bilateral pleural effusions. 2. Constipation. Questionable cirrhosis. Anasarca. Electronically signed by Rashawn Beltran 12/21/2018 5:40 PM
[2018-12-21] MEDS ORDERED: ZOCOR PO SCH (21:00)
[2018-12-21] MEDS: COLACE PO SCH (21:12)
[2018-12-21] MEDS: ZYLOPRIM PO SCH (21:15)
[2018-12-22] MEDS: ZOSYN 3.375 GM in NS 50 ML IV SCH ×4 (02:33→20:49)
[2018-12-22] MEDS: NS 1,000 ML IV SCH (05:40)
[2018-12-22] MEDS: XARELTO PO SCH (05:41)
[2018-12-22] MEDS: SINEMET 25/100 PO SCH ×3 (05:41→16:25)
[2018-12-22 06:08] LABS: BASO# 0.01 X1000 (0.0-0.2); BASO% 0.1 % (0.0-0.8); EOS# 0.17 X1000 (0.0-0.7); EOS% 0.9 % (0.0-10.0); HEMATOCRIT 30.7 % (42.0-52.0); HEMOGLOBIN 9.9 g/dL (14.0-18.0); IMM GRAN# 0.08 X1000 (0.0-0.04); IMM GRAN% 0.4 % (0.0-0.5); LYMPH# 0.97 X1000 (1.2-3.4); MCH 30.7 PG (27-31); MCHC 32.2 g/dL (33-37); MONO% 10.4 % (1.7-9.3); MPV 11.7 FL (7.4-10.4); NEUT# 16.06 X1000 (1.4-6.5); NEUT% 83.2 % (42.2-75.2); PLT 173 X1000 (130-400); RBC 3.23 XMIL (4.7-6.1); RDW 12.6 % (11.5-14.5); WBC 19.29 X1000 (4.8-10.8)
[2018-12-22 06:33] LABS: AGAP 12; BUN 29 mg/dL (8-22); CALCIUM 8.2 mg/dL (8.8-10.2); CHLORIDE 100 mmol/L (98-107); COSMO 277; ESTIMATED GFR > 60; GLUCOSE 110 mg/dL (70-104); POTASSIUM 3.7 mmol/L (3.5-5.1); SODIUM 135 mmol/L (136-145); TCO2 23 mmol/L (25-35)
--- NOTE | 2018-12-22 07:12 | PROGRESS NOTE ---
DATE: 12/22/2018 SUBJECTIVE: The patient is an 83-year-old male who is 2 days status post hemiarthroplasty of the left hip. He is currently resting comfortably. OBJECTIVE: On physical exam, his wound looks good. There are no signs or symptoms of infection. Calf is soft. He has active dorsiflexion and plantar flexion. LABORATORY DATA: Hemoglobin is 9.9 and hematocrit is 30.7. IMPRESSION: Postoperative day #2 status post hemiarthroplasty, left hip. PLAN: At this point, the patient will continue progressing with physical therapy. Electronic Console Display Operator has been consulted for inpatient rehabilitation. cc: Gera Tello MD
--- NOTE | 2018-12-22 08:01 | EKG Report ---
Test Performed on : 12/21/2018 3:19:46 PM Test Reason : positives troponins Blood Pressure : / mmHG Vent. Rate : 089 BPM Atrial Rate : 089 BPM P-R Int : 140 ms QRS Dur : 084 ms QT Int : 380 ms P-R-T Axes : 054 -14 022 degrees QTc Int : 462 ms Normal sinus rhythm. Septal infarct (cited on or before 28-OCT-2017) Abnormal ECG When compared with ECG of 19-DEC-2018 14:20, (Unconfirmed) premature supraventricular complexes. are no longer present T wave inversion no longer evident in Inferior leads T wave inversion no longer evident in Anterior leads Confirmed by Shoaib Graves MD ([id number]) on 12/22/2018 3:56:10 PM
[2018-12-22] MEDS ORDERED: NORVASC PO SCH (09:00)
[2018-12-22] MEDS ORDERED: ASPIRIN EC PO SCH (09:00)
[2018-12-22] MEDS: TYLENOL PO SCH ×3 (09:42→16:25)
[2018-12-22] MEDS: ZYLOPRIM PO SCH (09:42)
[2018-12-22] MEDS: FERROUS SULFATE PO SCH (09:42)
[2018-12-22] MEDS: REQUIP PO SCH ×2 (09:43→18:00)
[2018-12-22] MEDS: PERIDEX MT SCH (09:43)
[2018-12-22] MEDS ORDERED: VANCOMYCIN 1,500 MG in NS 250 ML IV SCH (12:00)
--- NOTE | 2018-12-22 15:36 | PROGRESS NOTE ---
DATE: 12/22/2018 SUBJECTIVE: Patient reports feeling fine. Denies any fever or chills. As per who is at bedside, she says that patient is breathing better. Some cough occasionally. OBJECTIVE: Vital Signs: Temperature 98.1, heart rate, 80, respiratory 22, blood pressure 117/67, O2 sat 97% on 3 L nasal cannula. General: This is a chronically ill-looking 83 -year-old male lying in bed in no acute distress. HEENT: Head is normocephalic , atraumatic. Neck: No JVD noted. No carotid bruits. No lymphadenopathy. No thyromegaly. Cardiovascular: S1, S2 heard. No murmurs, gallops or rubs. Regular rate and rhythm. Respiratory: Coarse breath sounds noted in both pulmonary wren. Patient not using any accessory muscles or having work of breathing. Abdomen: Soft, nontender to palpation. Bowel sounds present. No organomegaly. Extremities: No clubbing, cyanosis or edema. Peripheral pulses present in both legs. The hip covered by dressing. Neurologic: Patient is hard of hearing. He is in good mood. Cranial nerves 2-12 grossly normal. LABORATORY DATA: White cell count 19.39, hemoglobin 9.9, hematocrit 30.7, platelets 173,000. Sodium 135, normal creatinine. Troponin has been getting elevated, and CT of abdomen and pelvis showed right upper and bilateral lower lobe pneumonia with bilateral pleural effusions. ASSESSMENT AND PLAN: 1. Left femoral neck fracture status post left hemiarthroplasty, stable. Orthopedics following this patient. We will follow recommendations. 2. Sepsis secondary to right upper and lower lobe pneumonia. White cell count is getting better after we start this patient on vancomycin and Zosyn. Blood culture and urine culture are still pending. We will continue to monitor this patient closely. 3. Coronary artery disease with history of myocardial infarction. Troponin has been checked and they were getting higher. They were checking it initially not because of chest pain, but because of sepsis protocol. In any case, they kept going up, so at this point with no EKG changes will wait for Cardiology consultation and will go from there. 4. Hyperlipidemia. We will continue home medications. 5. DVT prophylaxis. We will continue with Xarelto. 6. Disposition: We will continue to monitor this patient closely. cc: MD DAVID Herrera
[2018-12-22] MEDS: SODIUM CHLORIDE 0.9% INJ SCH (16:25)
[2018-12-22] MEDS: PROTONIX IV SCH (16:25)
[2018-12-22 19:40] VITALS: BP 126/69
--- NOTE | 2018-12-23 07:58 | EKG Report ---
Test Performed on : 12/22/2018 4:46:43 PM Test Reason : elevated troponin Blood Pressure : / mmHG Vent. Rate : 097 BPM Atrial Rate : 097 BPM P-R Int : 162 ms QRS Dur : 078 ms QT Int : 352 ms P-R-T Axes : 061 -15 -09 degrees QTc Int : 447 ms Sinus rhythm. with marked sinus arrhythmia. Anterior infarct (cited on or before 28-OCT-2017) Abnormal ECG When compared with ECG of 21-DEC-2018 15:19, No significant change was found Unconfirmed Result
--- NOTE | 2018-12-23 08:05 | ECHO REPORT ---
ORDER DATE: 12/22/2018 INDICATIONS: An 83-year-old male, hypertension, coronary heart disease, hyperlipidemia, Parkinson's, hip fracture. M-MODE MEASUREMENTS: Left ventricle end diastole: 5.0 cm. Left ventricle end systole: 3.7 cm. Posterior wall: 0.7 cm. Interventricular septum: 0.8 cm. Left atrium: 4.2 cm. Aortic root: 3.5 cm. SUMMARY OF 2-DIMENSIONAL IMAGIN. The left ventricular systolic function is moderately impaired. Global ejection fraction estimated at 40%-45%. The study is really very limited. The anterior apical segment, especially in septal aspect, appears to be significantly impaired. 2. No thrombus is noted. 3. The aortic valve shows calcification of the cusp with some restriction to the opening. Maximum gradient 2-3 mmHg, mean gradient 11 mmHg. Color flow mapping shows mild to moderate degree of regurgitation. 4. Mitral valve shows mild degree or regurgitation. There is some thickening of the mitral annulus. 5. Pulse wave Doppler of mitral inflow shows mild reversal of the E/A ratio. The patient demonstrates frequent premature beats making the evaluation of the mitral inflow difficult. 6. The tricuspid valve shows mild to moderate degree of regurgitation. 7. Pulmonary pressure estimated at 58-63 mmHg. 8. Pulmonic valve looks normal with mild degree of regurgitation. There is no definite pericardial effusion, mass or thrombus. SUMMARY: In summary, this study was technically difficult. The global left ventricular ejection fraction appears to be moderately impaired in the range of 40%-45% with a special impairment of the septal apical segment of the left ventricle. There may be diastolic dysfunction. Pulmonary hypertension is present in the range of 58-63 mmHg. There is mild degree of aortic stenosis with mild to moderate degree of aortic regurgitation. Clinical correlation recommended. cc: MD Kaelyn Ornelas PA
--- NOTE | 2018-12-23 19:11 | DISCHARGE SUMMARY ---
ADMISSION DATE: 12/19/2018 DISCHARGE DATE: 12/23/2018 DISCHARGE DIAGNOSES: 1. Left femoral neck fracture. 2. Parkinson disease. 3. Hypertension. 4. Community-acquired pneumonia. 5. Coronary artery disease with history of myocardial infarction. 6. Hyperlipidemia. PROCEDURES: 1. Chest x-ray done on admission showed stable chest with irregular opacity in the right upper lobe inferiorly. 2. Head CT done on admission showed no evidence of acute intracranial disease. 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 3. Left hip hemiarthroplasty. 4. Chest, abdomen, pelvis CT showed right upper and bilateral lower lobe pneumonia with bilateral pleural effusion and constipation. HOSPITAL COURSE: This is a 89-year-old male who was basically admitted to the hospital because of left hip fracture. The patient was taken to the OR. Surgery was successful. Unfortunately he developed a pneumonia while in the hospital. We are not completely sure if it was aspiration pneumonia. In any case, we started broad-spectrum antibiotics. His white cell count initially was very high at 30,000 but was getting better day by day. Unfortunately on 12/22/2018, code ethan was called because this patient had apparently what looks like cardiorespiratory arrest and he passed on 12/22/2018. Time of has not yet been documented in the chart. cc: Darian Wilson MD MTDD
== END 2018-12-22 23:24 | disposition expired | DRG 469 ==
LOC: ED 14:09 → EDIPHOLD 15:46 → 4N 21:22
PROVIDERS: ATTEND Internal Medicine
CPT/HCPCS: 70450; 71010; 71045; 71270; 72110; 73500; 73501; 73502; 73560; 74170; 80048; 80053; 81001; 82550; 82553; 83605; 83735; 84443; 84484; 85025; 85610; 85730; 87040; 87088; 88305; 88311; 93005; 93010; 93306; 94761; 94799; 96374; 96375; 97110; 97116; 97162; 97530; 99285; A9270; C9113; C9290; J0131; J0330; J0690; J0696; J1885; J2270; J2274; J2275; J2405; J2543; J3370; J7030; J7050; Q9967; Q9974; S0164